=== PATIENT | female | born 1970 | race Caucasian/White ===

== ENCOUNTER 2017-01-13 18:26 | Emergency (ER) | payer BC ==
[~2017-01-13] VITALS: Ht 167.6 cm; Wt 111.1 kg
[2017-01-13] MEDS ORDERED: ZYRTEC10 M5 PO (18:35)
[2017-01-13] MEDS ORDERED: BACTRIM DS TAB1 EACH PO (19:07)
[2017-01-13 19:45] VITALS: BP 162/94
== END 2017-01-13 19:50 | disposition home or self-care (01) ==
LOC: ER 18:26
DX: T16.2XXA Foreign body in left ear, initial encounter (principal); H60.02 Abscess of left external ear; Z90.710 Acquired absence of both cervix and uterus; Z88.0 Allergy status to penicillin; F10.99 Alcohol use, unspecified with unspecified alcohol-induced disorder; X58.XXXA Exposure to other specified factors, initial encounter; Y93.89 Activity, other specified; Y92.89 Other specified places as the place of occurrence of the external cause; Y99.8 Other external cause status

== ENCOUNTER 2020-11-30 09:37 | Emergency (ER) | payer OTHER ==
[~2020-11-30] VITALS: Ht 167.6 cm; Wt 114.3 kg
[~2020-11-30 09:37] MED LIST: BACITRACIN 500U30 G1 TOP; BACTRIM DS TAB1 EACH PO; DIPHENHYDRAMINE25 M3 PO; IBUPROFEN 200200 M1 PO; ZYRTEC10 M5 PO
[2020-11-30] MEDS ORDERED: FLEXERIL PO (09:48)
[2020-11-30] MEDS ORDERED: ZINC30 M1 PO (09:49)
[2020-11-30] MEDS ORDERED: VITAMIN C500 M1 PO (09:49)
[2020-11-30] MEDS ORDERED: TRAMADOL 50 MG50 MG PO (09:49)
[2020-11-30] MEDS ORDERED: VITAMIN D310 MC2 PO (09:50)
[2020-11-30 11:05] LABS: RDW 13.5 % (10.5-14.5)
[2020-11-30 11:07] LABS: ABSOLUTE NEUTROPHILS 3.8 thou/uL (1.4-8.2); BASOPHILS 0.5 % (0.0-2.0); EOSINOPHILS 1.7 % (0.0-3.0); HEMATOCRIT 42.6 % (37.0-47.0); HEMOGLOBIN 14.3 gm/dL (12.0-15.0); LYMPHOCYTES 29.7 % (24.0-44.0); MCH 28.6 pg (26.0-34.0); MCHC 33.5 g/dL (28.0-37.0); MCV 85.4 fL (80.0-100.0); MONOCYTES 7.8 % (1.0-8.0); PLATELET COUNT 243 thou/uL (150-400); POLYS 60.3 % (36.0-66.0); RBC 4.99 mil/uL (4.20-5.00); WBC 6.3 thou/uL (4.0-11.0)
[2020-11-30 11:30] LABS: CALCIUM 8.6 mg/dL (8.5-10.1); CREATININE 0.9 mg/dL (0.6-1.0); POTASSIUM 3.2 mmol/L (3.5-5.1)
[2020-11-30] MEDS ORDERED: PREDNISONE 10 M10 MG PO (13:58)
[2020-11-30] MEDS ORDERED: CATAPRES0.2 MG PO (13:58)
[2020-11-30 14:30] VITALS: BP 157/94
== END 2020-11-30 14:30 | disposition home or self-care (01) ==
LOC: ER 09:37
PROVIDERS: Emergency Medicine
DX: R21 Rash and other nonspecific skin eruption (principal); I16.0 Hypertensive urgency; E87.6 Hypokalemia; Z90.710 Acquired absence of both cervix and uterus; Z79.899 Other long term (current) drug therapy; Z88.0 Allergy status to penicillin